=== PATIENT | female | born 1970 | race Caucasian/White ===

== ENCOUNTER → 2024-01-27 | Outpatient (CLI) | payer OTHER | LOC: M RAD 15:45 | PROVIDERS: ATTEND Student in an Organized Health Care Education/Training Program | DX: M76.60 Achilles tendinitis, unspecified leg (principal) ==

== ENCOUNTER → 2024-11-23 | Outpatient (CLI) | payer OTHER | LOC: M WHC 08:13 | PROVIDERS: ATTEND Student in an Organized Health Care Education/Training Program | DX: Z12.31 Encounter for screening mammogram for malignant neoplasm of breast (principal); Z76.89 Persons encountering health services in other specified circumstances; R92.313 Mammographic fatty tissue density, bilateral breasts ==